=== PATIENT | female | born 1930 | race Caucasian/White ===

== ENCOUNTER 2017-05-19 12:53 | Inpatient (IN) | payer OTHER ==
[~2017-05-19] VITALS: Ht 160 cm; Wt 59.4 kg
[2017-05-19 13:16] LABS: BASOPHILS # (AUTO) 0.1 /CMM (0.0-0.2); EOSINOPHILS % (AUTO) 0.1 % (0.0-6.0); HEMATOCRIT 38 % (33-45); HEMOGLOBIN 13.1 g/dL (11.5-14.8); LYMPHOCYTES # (AUTO) 0.8 /CMM (0.8-4.8); LYMPHOCYTES % (AUTO) 7.4 % (20.0-44.0); MEAN CORPUSCULAR HEMOGLOBIN 31 PG (26.0-33.0); MEAN CORPUSCULAR HGB CONC 35 g/dl (31.0-36.0); MEAN CORPUSCULAR VOLUME 90 fL (82-100); MONOCYTES # (AUTO) 0.3 /CMM (0.1-1.30); MONOCYTES % (AUTO) 3.2 % (2.0-12.0); NEUTROPHILS # (AUTO) 9.7 /CMM (1.8-8.9); NEUTROPHILS % (AUTO) 88.3 % (43.0-81.0); PLATELET COUNT (AUTO) 137 /CMM (150-450); RDW COEFFICIENT OF VARIATION 12.4 (11.5-15.0); RED BLOOD CELL COUNT(AUTO) 4.16 MIL/uL (4.0-5.2); WHITE BLOOD COUNT (AUTO) 10.9 K/uL (4.3-11.0)
[2017-05-19 13:31] LABS: INR 1.03 (0.87-1.13); PROTHROMBIN TIME 10.7 SECS (9.5-12.7)
[2017-05-19 14:07] LABS: TROPONIN I < 0.017 ng/mL (0.00-0.056)
[2017-05-19 14:08] LABS: ALANINE AMINOTRANSFERASE 20 U/L (12-78); ALBUMIN 3.2 g/dL (3.4-5.0); ALKALINE PHOSPHATASE 49 U/L (46-116); ASPARTATE AMINOTRANSFERASE 33 U/L (15-37); BILIRUBIN,DIRECT 0.1 mg/dL (0.0-0.2); BILIRUBIN,TOTAL 0.8 mg/dL (0.2-1.0); CALCIUM, SERUM 8.9 mg/dL (8.5-10.1); CARBON DIOXIDE 28 mmol/L (21-32); CHLORIDE 108 mmol/L (98-107); CREATININE 0.9 mg/dL (0.6-1.3); GLUCOSE 117 mg/dL (74-106); POTASSIUM 3.5 mmol/L (3.5-5.1); SODIUM SERUM 145 mmol/L (136-145); TOTAL PROTEIN, SERUM 7.1 g/dL (6.4-8.2); UREA NITROGEN, BLOOD 16 mg/dL (7-18)
[2017-05-19] MEDS ORDERED: DIVA500T7 PO (14:13)
[2017-05-19] MEDS ORDERED: ACET-2605 PO (14:13)
[2017-05-19] MEDS ORDERED: ESCI10TA PO (14:13)
[2017-05-19] MEDS ORDERED: LOSA50TA21 PO (14:13)
[2017-05-19] MEDS ORDERED: METO25TA3 PO (14:13)
[2017-05-19] MEDS ORDERED: CLOP75TA15 PO (14:13)
[2017-05-19] MEDS ORDERED: FERR325T28 PO (14:13)
[2017-05-19] MEDS ORDERED: DOCU-141 PO (14:13)
[2017-05-19] MEDS ORDERED: SIMV20TA6 PO (14:13)
[2017-05-19] MEDS ORDERED: LETR2.5T PO (14:13)
[2017-05-19] MEDS ORDERED: IV NS 0.9% 1,000 ML IV ONE (15:00)
[2017-05-19 15:01] LABS: APPEARANCE,URINE Clear (CLEAR); BILIRUBIN,URINE Negative (NEGATIVE); BLOOD, URINE Moderate Ery/uL (NEGATIVE); COLOR,URINE Yellow (YELLOW); KETONES,URINE 15 (NEGATIVE); LEUKOCYTE ESTERASE ,URINE Moderate (NEGATIVE); NITRITE, URINE Positive (NEGATIVE); PH,URINE 5.5 (5.0-8.0); PROTEIN,URINE 100 mg/dl (NEGATIVE); UGLUCOSE Negative (NEGATIVE)
--- NOTE | 2017-05-19 15:05 | NUR ---
DR. SMILEY AT MADE AWARE RE: LACTIC ACID RESULT.
[2017-05-19 15:09] LABS: BACTERIA,URINE Many /HPF (None Seen); SQUAMOUS EPITHELIAL CELL,UR Few /HPF (None Seen)
[2017-05-19] MEDS ORDERED: ZOLPIDEM TARTRATE 5 MG TABLET PO PRN (15:30)
[2017-05-19] MEDS ORDERED: CEFTRIAXONE 1 G in IV D5W 50 ML IV SCH (15:30)
[2017-05-19] MEDS ORDERED: Z GUARD REMEDY 2 OZ OINT TP PRN (15:30)
[2017-05-19] MEDS ORDERED: IV NS 0.9% 1,000 ML IV PRN (15:30)
[2017-05-19] MEDS ORDERED: ACETAMINOPHEN 325 MG TABLET PO PRN (15:30)
[2017-05-19] MEDS ORDERED: ONDANSETRON HCL/PF 4 MG/2 ML VIAL IVP PRN (15:30)
[2017-05-19] MEDS ORDERED: MAGNESIUM HYDROXIDE 30 ML UDC PO PRN (15:30)
[2017-05-19] MEDS ORDERED: MAG HYDROX/AL HYDROX/SIMETH 30 ML UDC PO PRN (15:30)
[2017-05-19] MEDS: METOPROLOL SUCCINATE 25 MG TAB.SR.24H PO SCH (17:00)
[2017-05-19] MEDS: DOCUSATE SODIUM 100 MG CAPSULE PO SCH (17:00)
--- NOTE | 2017-05-19 17:15 | NUR ---
[facility] ROOM 206-1
--- NOTE | 2017-05-19 18:00 | NUR ---
RN INITIAL NOTE RECEIVED PT VIA NESTOR. NO REPORT GIVEN . CALLED ER WAS TOLD BY VALE THAT THEY HAD A CODE AND TO CALL BACK. Addendum: 05/19/17 at 1826 by MOSHE SEXTON RN PT V/S 130/70, T 102, HR 70 SPO2 90
--- NOTE | 2017-05-19 18:24 | NUR ---
CALLED ER GOT REPORT FROM FRANKLIN MAKI FROM ER.
[2017-05-19] MEDS: ACETAMINOPHEN 650 MG/SUPP.RECT RC PRN (18:57)
--- NOTE | 2017-05-19 19:30 | NUR ---
RN NOTES RECEIVED PATIENT IN BED ASLEEP, AROUSABLE. CONFUSED; DOES NOT ANSWER QUESTIONS; RESPONSIVE TO VOICE AND TOUCH. NO ACUTE DISTRESS NOTED. NO SIGNS OF PAIN NOTED. IV SITE PATENT, INTACT; FLUSHED. ON LOW BED WITH BILATERAL UPPER SIDE RAILS UP. CALL SANCHEZ WITHIN EASY REACH. WILL CONTINUE TO MONITOR.
[2017-05-19 20:00] VITALS: BP 110/61
[2017-05-19] MEDS: SIMVASTATIN 20 MG TABLET PO SCH (22:00)
[2017-05-19] MEDS ORDERED: ESCITALOPRAM OXALATE (10 MG) 10 MG TABLET PO SCH (22:00)
[2017-05-19] MEDS: DIVALPROEX SODIUM 500 MG TABLET.DR PO SCH (22:00)
[2017-05-19] MEDS ORDERED: CEFTRIAXONE 1 G VIAL ONE (22:14)
--- NOTE | 2017-05-20 06:30 | NUR ---
RN NOTES PATIENT WITH EYES CLOSED, AROUSABLE. RESPIRATIONS EVEN. NO SIGNS OF PAIN NOTED. DUE MED GIVEN WITH NO ASE NOTED. NEEDS ATTENDED. KEPT CLEAN AND DRY. SAFETY PRECAUTIONS AND COMFORT MEASURES IN PLACE. WILL GIVE REPORT TO DAY SHIFT FOR CONTINUITY OF CARE.
[2017-05-20 07:42] LABS: INR 1.05 (0.87-1.13); PROTHROMBIN TIME 10.9 SECS (9.5-12.7)
[2017-05-20 07:51] LABS: BASOPHILS % (AUTO) 0.1 % (0.0-2.0); EOSINOPHILS % (AUTO) 0.2 % (0.0-6.0); HEMATOCRIT 37 % (33-45); HEMOGLOBIN 13.1 g/dL (11.5-14.8); LYMPHOCYTES # (AUTO) 0.5 /CMM (0.8-4.8); LYMPHOCYTES % (AUTO) 7.5 % (20.0-44.0); MEAN CORPUSCULAR HEMOGLOBIN 32 PG (26.0-33.0); MEAN CORPUSCULAR HGB CONC 35 g/dl (31.0-36.0); MEAN CORPUSCULAR VOLUME 92 fL (82-100); MONOCYTES # (AUTO) 0.3 /CMM (0.1-1.30); MONOCYTES % (AUTO) 4.8 % (2.0-12.0); NEUTROPHILS # (AUTO) 6.1 /CMM (1.8-8.9); NEUTROPHILS % (AUTO) 87.4 % (43.0-81.0); PLATELET COUNT (AUTO) 123 /CMM (150-450); RED BLOOD CELL COUNT(AUTO) 4.07 MIL/uL (4.0-5.2); WHITE BLOOD COUNT (AUTO) 6.9 K/uL (4.3-11.0)
[2017-05-20 08:08] LABS: ALANINE AMINOTRANSFERASE 18 U/L (12-78); ALBUMIN 2.7 g/dL (3.4-5.0); ALKALINE PHOSPHATASE 40 U/L (46-116); ASPARTATE AMINOTRANSFERASE 34 U/L (15-37); BILIRUBIN,TOTAL 0.7 mg/dL (0.2-1.0); CALCIUM, SERUM 8.5 mg/dL (8.5-10.1); CARBON DIOXIDE 25 mmol/L (21-32); CHLORIDE 109 mmol/L (98-107); CREATININE 0.8 mg/dL (0.6-1.3); GLUCOSE 141 mg/dL (74-106); MAGNESIUM 1.8 mg/dL (1.8-2.4); PHOSPHORUS 2.5 mg/dL (2.5-4.9); SODIUM SERUM 146 mmol/L (136-145); TOTAL PROTEIN, SERUM 6.4 g/dL (6.4-8.2); UREA NITROGEN, BLOOD 17 mg/dL (7-18)
--- NOTE | 2017-05-20 08:10 | NUR ---
RN NOTES PATIENT WAS FOUND ON A 9LPM VIA MASK WITH SPO2 OF 85%. PATIENT WITH RAPID AND SHALLOW RESPIRATION. HOB ELEVATED, PATIENT'S OXYGEN INCREASED TO 10LPM VIA NRB, SPO2 INCREASED TO 91-92%. BP111/69 P76 T98.2 R28. PATIENT IS RESPONSIVE TO TOUCH, ABLE TO OPENS EYES BRIEFLY. CALLED [facility] DOCTOR, JESSICA COYNE GROMMET WORKER AND RECEIVED ORDER FOR ABG AND CXR, ORDER NOTED AND CARRIED OUT. WILL CONTINUE TO CLOSELY MONITOR THE PATIENT.
[2017-05-20 08:12] LABS: CHOLESTEROL 93 mg/dL (<200); CREATINE KINASE MB 1.5 ng/mL (0-3.6); HDL CHOLESTEROL 36 mg/dL (40-60); LDL 47 mg/dL (0-99); THYROID STIMULATING HORMONE 0.761 uIU/mL (0.358-3.74); TRIGLYCERIDES 52 mg/dL (30-150)
[2017-05-20 08:14] LABS: POTASSIUM 2.8 mmol/L (3.5-5.1)
[2017-05-20] MEDS ORDERED: POTASSIUM CHLORIDE 10 MEQ/50 ML PREMIXED IVPB FOR PERIPHERAL LINE IV STA (08:16)
[2017-05-20 08:17] LABS: IRON, SERUM 13 ug/dl (50-175); TOTAL IRON BINDING CAPACITY 141 ug/dl (250-450)
--- NOTE | 2017-05-20 08:19 | NUR ---
RN NOTES K LEVEL OF 2.8 RELAYED TO JESSICA COYNE NP, RECEIVED ORDER FOR POTASSIUM CHLORIDE 40MEQ. ORDER NOTED AND CARRIEDOUT.
[2017-05-20 08:37] LABS: ABG BASE EXCESS -0.1 mmol/L; ABG OXYGEN SATURATION 94.8 % (92.0-98.5); ABG PCO2 32.1 mmHg (35.0-45.0); ABG PO2 78.1 mmHg (75.0-100.0); AaDO2 602.8 mmHg; COHb 0.3 % (0.5-1.5); MetHb 0.4 % (0.0-1.5); O2Hb 94.1 % (94.0-97.0); SITE, ABG Left Radial; VENT MODE, BG NRB
--- NOTE | 2017-05-20 08:53 | NUR ---
RN NOTES RELAYED ABG RESULT TO DR. SMILEY AND RECEIVED ORDER TO TRANSFER PATIENT TO [facility], AND TO SET UP BIPAP. ORDER NOTED AND CARRIED OUT. PATIENT STILL ON O2 AT 10LPM VIA NRB, NOTED WITH LABORED BREATHING. PATIENT RESPONSIVE TO TOUCH. PAGED RT. WILL CONTINUE TO CLOSELY MONITOR.
[2017-05-20] MEDS: FERROUS SULFATE (325 MG) 325 MG/TAB TABLET PO SCH (09:00)
[2017-05-20] MEDS: CLOPIDOGREL BISULFATE 75 MG TABLET PO SCH (09:00)
[2017-05-20] MEDS: DOCUSATE SODIUM 100 MG CAPSULE PO SCH ×2 (09:00→16:28)
[2017-05-20] MEDS: LOSARTAN POTASSIUM 50 MG TABLET PO SCH (09:00)
[2017-05-20] MEDS: LETROZOLE 2.5 MG TABLET PO SCH (09:00)
[2017-05-20] MEDS: METOPROLOL SUCCINATE 25 MG TAB.SR.24H PO SCH ×2 (09:00→16:28)
[2017-05-20] MEDS ORDERED: FUROSEMIDE 100 MG/10 ML VIAL IV ONE (09:29)
--- NOTE | 2017-05-20 09:46 | NUR ---
RT NOTE PT PLACED ON BIPAP, PER MD ORDER, SETTINGS OF 15/5 BUR16, 100% FIO2, PRESCRIBED, ALARMS SET PER PROTOCOL AND AUDIBLE, BIPAP PLUGGED INTO RED OUTLET, AMBUBAG AT BEDSIDE, NO DISTRESS NOTED AT MOMENT, Addendum: 05/20/17 at 0949 by MARY MARIN RT Amended: Links added.
--- NOTE | 2017-05-20 10:00 | NUR ---
RT THIS PT WAS TRANSFERRED FROM 207 TO 107, MADE AWARE, PT IN NO DISTRESS, AMBUBAG AT BEDSIDE, PT STABLE WITH NO APPARENT DISTRESS. Addendum: 05/20/17 at 1048 by MARY MARIN RT Amended: Links added.
--- NOTE | 2017-05-20 10:05 | NUR ---
RN NOTES GAVE REPORT TO IAM MAKI, PATIENT TRANSFERRED TO [facility] ROOM 107 FOR HIGHER LEVEL OF CARE, ON O2 AT 10LPM VIA NON-REBREATHER MASK. SON MAUDE AT BEDSIDE, GAVE COPY OF [facility] DIRECTIVE, AND WOULD LIKE TO SPEAK WITH RE: CODE STATUS. ENDORSED TO IAM MAKI. DR. SMILEY MADE AWARE AND WILL TALK TO SON.
[2017-05-20] MEDS: POTASSIUM CL. PREMIX PERIPHER. 50 ML IV SCH ×4 (11:30→16:24)
[2017-05-20 16:00] VITALS: BP 114/54
[2017-05-20] MEDS: ACETAMINOPHEN 650 MG/SUPP.RECT RC PRN (16:39)
[2017-05-20] MEDS ORDERED: FEE PK DOSING 1 MIN EA MC ONE (17:06)
--- NOTE | 2017-05-20 17:54 | NUR ---
PATIENT TOLERATING BIPAP WELL ON CURRENT ORDERED SETTINGS. NO S/S OF RESPIRATORY DISTRESS NOTED. BIPAP PLUGGED INTO RED OUTLET. ALARMS ARE SET AND FUNCTIONING. AMBU BAG AT PATIENT BEDSIDE.
[2017-05-20] MEDS: PIPERACILLIN /TAZOBACTAM 2.25 G in IV D5W 50 ML IV SCH (18:05)
[2017-05-20] MEDS: VANCOMYCIN 1 GM in IV D5W 250 ML IV SCH (18:05)
--- NOTE | 2017-05-20 18:19 | NUR ---
MEPILEX PLACED AT BRIDGE OF THE NOSE DUE TO REDNESS. PRIMARY NURSE(IAM) AWARE.
--- NOTE | 2017-05-20 19:37 | NUR ---
RCVD PT ON BIPAP 27/09, RATE 16, 80%. VENT ALARM WORKING AND AUDIBLE, VENT PLUGGED INTO RED OUTLET, NO RESPIRATORY DISTRESS OR SOB NOTED AT THIS TIME. WILL CONTINUE TO MONITOR THE PATIENT.
[2017-05-20 20:00] VITALS: BP 91/39
--- NOTE | 2017-05-20 20:00 | NUR ---
tavares rn notes received pts on vipap as ordered well tolerated sating 98% on tele sb =59 no sob no distress noted , with eye close arrousable piv intact and patent ,all needs attended too call light within reach iv meds given as ordered, due po medication not given d/t pts npo diagnosis. turned q 2hrs and prn , kept pts clean dry and comfortable v/s stable afebrile . will continue to monitor pts.
[2017-05-20] MEDS ORDERED: CEFTRIAXONE 1 G in IV NS 0.9% 50 ML IV SCH (21:00)
[2017-05-20] MEDS ORDERED: IV NS 0.9% 250 ML IV PRN (21:30)
[2017-05-20] MEDS: DIVALPROEX SODIUM 500 MG TABLET.DR PO SCH (22:00)
[2017-05-20] MEDS: SIMVASTATIN 20 MG TABLET PO SCH (22:00)
[2017-05-21] VITALS: BP 98/54
[2017-05-21] MEDS: PIPERACILLIN /TAZOBACTAM 2.25 G in IV D5W 50 ML IV SCH ×2 (01:18→05:17)
[2017-05-21 04:00] VITALS: BP 99/38
--- NOTE | 2017-05-21 05:46 | NUR ---
[facility] RN NOTES PTS REMAINS ON BIPAP ORDERED AT 60%FIO2 WELL TOLERATED SATING 98% ON TELE SB-55 ON THE MONITOR , V/S STABLE AFEBRILE, WILL ENDORSE TO RN DAY SHIFT FOR CONTINUITY OF CARE.
[2017-05-21 07:19] LABS: BASOPHILS % (AUTO) 0.1 % (0.0-2.0); CALCIUM, SERUM 8.8 mg/dL (8.5-10.1); CARBON DIOXIDE 27 mmol/L (21-32); CHLORIDE 108 mmol/L (98-107); CREATININE 0.9 mg/dL (0.6-1.3); GLUCOSE 112 mg/dL (74-106); HEMATOCRIT 38 % (33-45); HEMOGLOBIN 12.8 g/dL (11.5-14.8); LYMPHOCYTES # (AUTO) 0.7 /CMM (0.8-4.8); MAGNESIUM 2.1 mg/dL (1.8-2.4); MEAN CORPUSCULAR HEMOGLOBIN 32 PG (26.0-33.0); MEAN CORPUSCULAR HGB CONC 34 g/dl (31.0-36.0); MEAN CORPUSCULAR VOLUME 93 fL (82-100); MONOCYTES # (AUTO) 0.1 /CMM (0.1-1.30); NEUTROPHILS # (AUTO) 9.2 /CMM (1.8-8.9); NEUTROPHILS % (AUTO) 91.9 % (43.0-81.0); PHOSPHORUS 2.9 mg/dL (2.5-4.9); PLATELET COUNT (AUTO) 129 /CMM (150-450); RDW COEFFICIENT OF VARIATION 13.4 (11.5-15.0); RED BLOOD CELL COUNT(AUTO) 4.05 MIL/uL (4.0-5.2); SODIUM SERUM 146 mmol/L (136-145); UREA NITROGEN, BLOOD 29 mg/dL (7-18)
--- NOTE | 2017-05-21 07:53 | NUR ---
RT REMOVED PATIENT ON BIPAP. PLACED PATIENT ON NONREBREATHER @ 100%. SP02 > 95%. NURSE, GINO, NOTIFIED. WILL CONTINUE TO MONITOR T/O SHIFT. NO SOB NOTED.
[2017-05-21 08:00] VITALS: BP 124/57
[2017-05-21] MEDS: CLOPIDOGREL BISULFATE 75 MG TABLET PO SCH (09:00)
[2017-05-21] MEDS: LOSARTAN POTASSIUM 50 MG TABLET PO SCH (09:00)
[2017-05-21] MEDS: DOCUSATE SODIUM 100 MG CAPSULE PO SCH ×2 (09:00→17:00)
[2017-05-21] MEDS: FERROUS SULFATE (325 MG) 325 MG/TAB TABLET PO SCH (09:00)
[2017-05-21] MEDS: METOPROLOL SUCCINATE 25 MG TAB.SR.24H PO SCH ×2 (09:00→17:00)
[2017-05-21] MEDS: LETROZOLE 2.5 MG TABLET PO SCH (09:00)
[2017-05-21 12:00] VITALS: BP 140/95
[2017-05-21] MEDS: VANCOMYCIN 1 GM in IV D5W 250 ML IV SCH (12:04)
[2017-05-21] MEDS: IV NS 0.9% 1,000 ML IV PRN (14:14)
[2017-05-21] MEDS: PIPERACILLIN /TAZOBACTAM 3.375 G in IV D5W 50 ML IV SCH ×3 (14:20→23:47)
[2017-05-21 16:00] VITALS: BP_SYST 113; BP_SYST 124; BP_DIAS 57; BP_DIAS 75
--- NOTE | 2017-05-21 19:36 | NUR ---
RN NOTE; TOLERATING NON REBREATHER MASK . PATIENT MORE AWAKE AND ALERT. SON AT THE BED SIDE . NO ANY DISTRESS NOTED. ON NS @ 80 ML/HR . ENDORSE TO NEXT SHIFT RN FOR CONTINUITY OF CARE.
[2017-05-21 20:00] VITALS: BP 118/50
--- NOTE | 2017-05-21 20:00 | NUR ---
TIRE LAYER NOTES RECEIVED PTS ON NON REBREATHER MASK SATING 95-97 % ON TELE SR ON THE MONITOR , PTS REMAINS NPO , ON IVF NS AT 80CC/HR WELL TOLERATED , NO SOB NO DISTRESS NOTED ALL NEEDS ATTENDED TOO ALL IV MEDICATION GIVEN ORDERED KEPT PTS CLEAN DRY AND COMFORTABLE , WILL CONTINUE TO MONITOR PTS.
[2017-05-21] MEDS: DIVALPROEX SODIUM 500 MG TABLET.DR PO SCH (21:49)
[2017-05-21] MEDS: SIMVASTATIN 20 MG TABLET PO SCH (21:50)
[2017-05-22] VITALS (7 sets, daily range): BP systolic 110–128; BP diastolic 53–72
[2017-05-22] MEDS: IV NS 0.9% 1,000 ML IV PRN ×2 (04:25→19:46)
[2017-05-22] MEDS: VANCOMYCIN 1 GM in IV D5W 250 ML IV SCH (05:24)
[2017-05-22] MEDS: PIPERACILLIN /TAZOBACTAM 3.375 G in IV D5W 50 ML IV SCH ×3 (06:20→17:43)
--- NOTE | 2017-05-22 06:54 | NUR ---
CYANIDE CASE HARDENER NOTES ENDORSE PTS WITH RN REGINE PTS REMAINS NPO ORDERED IVF NS AT 80CC/HR IN PROGRESS , WILL CONTINUE TO MONITOR PTS.
--- NOTE | 2017-05-22 07:05 | NUR ---
RECEIVED PATIENT ASLEEP BUT AROUSABLE ON NONREBREATHER,KEPT COMFORTABLE.
[2017-05-22 07:39] LABS: BASOPHILS % (AUTO) 0.2 % (0.0-2.0); HEMATOCRIT 33 % (33-45); LYMPHOCYTES # (AUTO) 0.7 /CMM (0.8-4.8); LYMPHOCYTES % (AUTO) 9.6 % (20.0-44.0); MEAN CORPUSCULAR HEMOGLOBIN 32 PG (26.0-33.0); MEAN CORPUSCULAR HGB CONC 34 g/dl (31.0-36.0); MEAN CORPUSCULAR VOLUME 94 fL (82-100); MONOCYTES # (AUTO) 0.1 /CMM (0.1-1.30); MONOCYTES % (AUTO) 1.5 % (2.0-12.0); NEUTROPHILS # (AUTO) 6.4 /CMM (1.8-8.9); NEUTROPHILS % (AUTO) 88.7 % (43.0-81.0); PLATELET COUNT (AUTO) 115 /CMM (150-450); RDW COEFFICIENT OF VARIATION 13.3 (11.5-15.0); RED BLOOD CELL COUNT(AUTO) 3.46 MIL/uL (4.0-5.2); WHITE BLOOD COUNT (AUTO) 7.2 K/uL (4.3-11.0)
[2017-05-22 07:53] LABS: CALCIUM, SERUM 8.4 mg/dL (8.5-10.1); CARBON DIOXIDE 22 mmol/L (21-32); CHLORIDE 111 mmol/L (98-107); CREATININE 0.8 mg/dL (0.6-1.3); GLUCOSE 113 mg/dL (74-106); MAGNESIUM 2.1 mg/dL (1.8-2.4); PHOSPHORUS 2.4 mg/dL (2.5-4.9); POTASSIUM 3.5 mmol/L (3.5-5.1); SODIUM SERUM 144 mmol/L (136-145); UREA NITROGEN, BLOOD 19 mg/dL (7-18)
[2017-05-22] MEDS: DOCUSATE SODIUM 100 MG CAPSULE PO SCH ×2 (08:11→16:19)
[2017-05-22] MEDS: LETROZOLE 2.5 MG TABLET PO SCH (08:12)
[2017-05-22] MEDS: FERROUS SULFATE (325 MG) 325 MG/TAB TABLET PO SCH (08:12)
[2017-05-22] MEDS: LOSARTAN POTASSIUM 50 MG TABLET PO SCH (08:12)
[2017-05-22] MEDS: CLOPIDOGREL BISULFATE 75 MG TABLET PO SCH (08:12)
[2017-05-22] MEDS: METOPROLOL SUCCINATE 25 MG TAB.SR.24H PO SCH ×2 (08:13→16:19)
--- NOTE | 2017-05-22 08:13 | NUR ---
held all po meds patient still lethargic and on npo,will ff. up.
--- NOTE | 2017-05-22 10:25 | NUR ---
patient seen and evaluated by dr. reese more awake,able to swallow ice chips,per md will titrate down o2 to 5 liters,sat %.
--- NOTE | 2017-05-22 10:34 | NUR ---
per dr. mary ann cooper to start on pureed with strict aspiration precaution.keep hob 45 degrees.
--- NOTE | 2017-05-22 13:00 | NUR ---
patient tolerated pureed ,aspiration precaution observed.
--- NOTE | 2017-05-22 13:01 | NUR ---
son at bedside updated with patient condition.
[2017-05-22] MEDS ORDERED: K PHOS NEUTRAL 250 MG TABLET PO ONE (13:30)
[2017-05-22] MEDS ORDERED: NEUTRA PHOS 1 POWD.PACKET PO ONE (15:00)
--- NOTE | 2017-05-22 16:27 | NUR ---
patient asleep,no acute distress,held bp meds secondary to low heart rate and bp md aware.
--- NOTE | 2017-05-22 17:57 | NUR ---
PT. HIGH RISK FOR SKIN BREAKDOWN OBTAINED ORDER FOR AIR MATTRESS.
--- NOTE | 2017-05-22 18:40 | NUR ---
patient tolerated dinner,aspiration precaution observed.
--- NOTE | 2017-05-22 19:15 | NUR ---
SPRING WINDER NOTES RECEIVED PATIENT AND REPORT FROM DAY SHIFT.
[2017-05-22] MEDS: DIVALPROEX SODIUM 500 MG TABLET.DR PO SCH (21:44)
[2017-05-22] MEDS: SIMVASTATIN 20 MG TABLET PO SCH (21:44)
--- NOTE | 2017-05-22 21:47 | NUR ---
LOADING INSPECTOR NOTES GAVE REPORT AND CARE OF PATIENT TO GLYNN TORRES.
--- NOTE | 2017-05-22 22:00 | NUR ---
OMID RN NOTE PT IN BED AWAKE, A/O X 1, CONFUSED. NO SOB, NO DISTRESS OR DISCOMFORT NOTED. DENIES PAIN. ON TELE SB 58 IVF NS @ 80 ML/HR INFUSING WELL, NO S/S OF INFILTRATION NOTED. REPOSITION HER FOR SKIN MANAGEMENT. ALL NEEDS ATTENDED. SIDE RAILS UP X 2 AND CALL LIGHT WITHIN REACH. VSS. CONTINUE TO MONITOR HER.
[2017-05-23] MEDS: VANCOMYCIN 1 GM in IV D5W 250 ML IV SCH (01:04)
[2017-05-23] MEDS: PIPERACILLIN /TAZOBACTAM 3.375 G in IV D5W 50 ML IV SCH ×5 (01:04→23:08)
[2017-05-23 04:00] VITALS: BP 114/48
--- NOTE | 2017-05-23 04:05 | NUR ---
MS RN NOTE PT IN NO DISTRESS OR DISCOMFORT. ASLEEP. PT ENDORSE TO NURSE IRAHETA FOR CONTINUE TO CARE.
--- NOTE | 2017-05-23 06:47 | NUR ---
LINE OUT MAN NOTE PT IN BED AWAKE, A/O X 1, CONFUSED. NO SOB, NO DISTRESS OR DISCOMFORT NOTED. DENIES PAIN. ON TELE SB 54 IVF NS @ 80 ML/HR INFUSING WELL, NO S/S OF INFILTRATION NOTED. REPOSITION HER FOR SKIN MANAGEMENT. ALL NEEDS ATTENDED. SIDE RAILS UP X 2 AND CALL LIGHT WITHIN REACH. VSS. WILL ENDORSE TO DAY SHIFT FOR ZOË.
[2017-05-23 06:48] LABS: BASOPHILS % (AUTO) 0.2 % (0.0-2.0); EOSINOPHILS % (AUTO) 0.1 % (0.0-6.0); HEMATOCRIT 32 % (33-45); HEMOGLOBIN 10.9 g/dL (11.5-14.8); LYMPHOCYTES # (AUTO) 0.9 /CMM (0.8-4.8); LYMPHOCYTES % (AUTO) 16.2 % (20.0-44.0); MEAN CORPUSCULAR HEMOGLOBIN 32 PG (26.0-33.0); MEAN CORPUSCULAR HGB CONC 34 g/dl (31.0-36.0); MEAN CORPUSCULAR VOLUME 93 fL (82-100); MONOCYTES # (AUTO) 0.3 /CMM (0.1-1.30); MONOCYTES % (AUTO) 5.9 % (2.0-12.0); NEUTROPHILS # (AUTO) 4.5 /CMM (1.8-8.9); NEUTROPHILS % (AUTO) 77.6 % (43.0-81.0); PLATELET COUNT (AUTO) 157 /CMM (150-450); RDW COEFFICIENT OF VARIATION 13.7 (11.5-15.0); RED BLOOD CELL COUNT(AUTO) 3.45 MIL/uL (4.0-5.2); WHITE BLOOD COUNT (AUTO) 5.8 K/uL (4.3-11.0)
[2017-05-23 07:16] LABS: CALCIUM, SERUM 8.6 mg/dL (8.5-10.1); CARBON DIOXIDE 30 mmol/L (21-32); CHLORIDE 112 mmol/L (98-107); CREATININE 0.8 mg/dL (0.6-1.3); GLUCOSE 94 mg/dL (74-106); PHOSPHORUS 2.9 mg/dL (2.5-4.9); SODIUM SERUM 149 mmol/L (136-145); UREA NITROGEN, BLOOD 15 mg/dL (7-18)
[2017-05-23 07:21] LABS: POTASSIUM 2.8 mmol/L (3.5-5.1)
--- NOTE | 2017-05-23 07:53 | NUR ---
BOAT MOTOR MECHANIC NOTES RECEIVED PT ON BED. A.OX 1. ON TELE MONITOR SB HR 58. ON NC 2L TOLERATING WELL. IV FLUID NS 80ML/HR RUNNING WELL. NO SIGN OF PAIN OR REDNESS. HEAD OF BED ELEVATED. SIDE RAILS UP. WILL CONTINUE TO MONITOR PT CLOSELY.
[2017-05-23 08:00] VITALS: BP 142/51
[2017-05-23] MEDS: METOPROLOL SUCCINATE 25 MG TAB.SR.24H PO SCH ×2 (09:19→17:49)
[2017-05-23] MEDS: CLOPIDOGREL BISULFATE 75 MG TABLET PO SCH (09:19)
[2017-05-23] MEDS: LETROZOLE 2.5 MG TABLET PO SCH (09:19)
[2017-05-23] MEDS: LOSARTAN POTASSIUM 50 MG TABLET PO SCH (09:20)
[2017-05-23] MEDS: Z GUARD REMEDY 2 OZ OINT TP SCH (09:20)
[2017-05-23] MEDS: FERROUS SULFATE (325 MG) 325 MG/TAB TABLET PO SCH (09:20)
[2017-05-23] MEDS: DOCUSATE SODIUM 100 MG CAPSULE PO SCH ×2 (09:20→17:49)
[2017-05-23 12:00] VITALS: BP 135/57
[2017-05-23] MEDS: POTASSIUM CL. PREMIX PERIPHER. 50 ML IV SCH ×4 (13:01→15:39)
[2017-05-23] MEDS: VANCOMYCIN 1 GM in IV D5W 250ml IV SCH (13:54)
[2017-05-23] MEDS ORDERED: POTASSIUM CHLORIDE 20 MEQ TAB.PRT.SR PO ONE (14:00)
--- NOTE | 2017-05-23 15:05 | NUR ---
PARTY PLAN SALES DIRECTOR NOTES NOTIFIED DR SMILEY REGARDING PT POTASSIUM 2.8
[2017-05-23 16:00] VITALS: BP 139/56
--- NOTE | 2017-05-23 19:33 | NUR ---
LEAD MEDICAL TECHNOLOGIST NOTES NO ACUTE CHANGES NOTED DURING THE SHIFT. DUE MEDS GIVEN. PROVIDED COMFORT. HEAD OF BED ELEVATED. SIDE RAILS UP. ENDORSED TO THE PM NURSE FOR CONTINUITY OF CARE.
[2017-05-23 20:00] VITALS: BP 137/48
[2017-05-23] MEDS: SIMVASTATIN 20 MG TABLET PO SCH (21:28)
[2017-05-23] MEDS: DIVALPROEX SODIUM 500 MG TABLET.DR PO SCH (21:29)
[2017-05-23] MEDS: HYDROCODONE/APAP 5/325MG 1 EACH TABLET PO PRN (21:29)
[2017-05-24 00:03] VITALS: BP 131/56
[2017-05-24] MEDS: VANCOMYCIN 1 GM in IV D5W 250ml IV SCH ×2 (01:04→13:08)
[2017-05-24] MEDS: IV NS 0.9% 1,000 ML IV PRN (01:50)
[2017-05-24 04:00] VITALS: BP 122/62
[2017-05-24] MEDS: PIPERACILLIN /TAZOBACTAM 3.375 G in IV D5W 50 ML IV SCH ×3 (05:13→17:29)
[2017-05-24] MEDS: HYDROCODONE/APAP 5/325MG 1 EACH TABLET PO PRN (05:16)
[2017-05-24 06:42] LABS: BASOPHILS % (AUTO) 0.2 % (0.0-2.0); EOSINOPHILS # (AUTO) 0.1 /CMM (0.0-0.7); EOSINOPHILS % (AUTO) 2.4 % (0.0-6.0); HEMATOCRIT 35 % (33-45); HEMOGLOBIN 11.9 g/dL (11.5-14.8); LYMPHOCYTES % (AUTO) 21.3 % (20.0-44.0); MEAN CORPUSCULAR HEMOGLOBIN 32 PG (26.0-33.0); MEAN CORPUSCULAR HGB CONC 35 g/dl (31.0-36.0); MEAN CORPUSCULAR VOLUME 92 fL (82-100); MONOCYTES # (AUTO) 0.3 /CMM (0.1-1.30); MONOCYTES % (AUTO) 6.5 % (2.0-12.0); NEUTROPHILS # (AUTO) 3.3 /CMM (1.8-8.9); NEUTROPHILS % (AUTO) 69.6 % (43.0-81.0); PLATELET COUNT (AUTO) 194 /CMM (150-450); RDW COEFFICIENT OF VARIATION 13.3 (11.5-15.0); RED BLOOD CELL COUNT(AUTO) 3.76 MIL/uL (4.0-5.2); WHITE BLOOD COUNT (AUTO) 4.7 K/uL (4.3-11.0)
[2017-05-24 06:58] LABS: CALCIUM, SERUM 8.8 mg/dL (8.5-10.1); CARBON DIOXIDE 32 mmol/L (21-32); CHLORIDE 110 mmol/L (98-107); CREATININE 0.7 mg/dL (0.6-1.3); GLUCOSE 94 mg/dL (74-106); MAGNESIUM 1.9 mg/dL (1.8-2.4); PHOSPHORUS 3.2 mg/dL (2.5-4.9); SODIUM SERUM 148 mmol/L (136-145); UREA NITROGEN, BLOOD 7 mg/dL (7-18)
[2017-05-24 07:24] LABS: POTASSIUM 2.7 mmol/L (3.5-5.1)
[2017-05-24 08:00] VITALS: BP_SYST 144; BP_DIAS 30; BP_DIAS 60
--- NOTE | 2017-05-24 08:00 | NUR ---
SOFTWARE DEVELOPMENT LEADER NOTES RECEIVED PT ON BED. A.OX 1. ON TELE MONITOR SB HR 43 ON NC 2L TOLERATING WELL. IV FLUID NS 80ML/HR RUNNING WELL. NO SIGN OF PAIN OR REDNESS. HEAD OF BED ELEVATED. SIDE RAILS UP. WILL CONTINUE TO MONITOR PT CLOSELY. NO SOB NOTED SEEN BY WOUND NURSE , Addendum: 05/24/17 at 0946 by GRETA COATS RN K 2.7 DR COSBY NOTIFIED WITH ORDER KCL GIVEN
--- NOTE | 2017-05-24 08:34 | NUR ---
WOUND CARE CONSULT PATIENT SEEN AND SKIN INTEGRITY ASSESSMENT DONE. PATIENT PRESENTS WITH INTACT SKIN AT THIS TIME. PATIENT WITH CURRENT ENRIQUE AT 12, INCONTINENT. ALL SKIN PROTECTION MEASURES IN PLACE AT THIS TIME. CONTINUE TURNING SCHED Q 2 HOURS, BILATERAL HEEL FLOATING, AND USE OF Z GUARD FOR SKIN/MOISTURE MANAGEMENT. ON 1ST STEP LOW AIRLOSS MATTRESS. MD IN AGREEMENT WITH PLAN OF CARE.
[2017-05-24] MEDS: METOPROLOL SUCCINATE 25 MG TAB.SR.24H PO SCH ×2 (09:00→16:19)
[2017-05-24] MEDS: CLOPIDOGREL BISULFATE 75 MG TABLET PO SCH (09:00)
[2017-05-24] MEDS: DOCUSATE SODIUM 100 MG CAPSULE PO SCH ×2 (09:00→16:19)
[2017-05-24] MEDS: LETROZOLE 2.5 MG TABLET PO SCH (09:00)
[2017-05-24] MEDS: LOSARTAN POTASSIUM 50 MG TABLET PO SCH (09:00)
[2017-05-24] MEDS: FERROUS SULFATE (325 MG) 325 MG/TAB TABLET PO SCH (09:00)
[2017-05-24] MEDS: Z GUARD REMEDY 2 OZ OINT TP SCH (09:00)
[2017-05-24] MEDS: POTASSIUM CHLORIDE 20 MEQ TAB.PRT.SR PO SCH ×2 (09:01→10:44)
--- NOTE | 2017-05-24 11:24 | NUR ---
HR INTERNSHIP NOTE ADELA AT BEDSIDE MID LINE INSERTED
--- NOTE | 2017-05-24 11:45 | NUR ---
SPOUT LINER NOTE CALLED X3 TO PHARMACY Z GUARD NOT AVAILABLE YET ,WILL F\U
[2017-05-24 12:00] VITALS: BP 100/59
--- NOTE | 2017-05-24 13:12 | NUR ---
BROOCH AND BRACELET MAKER NOTE ST AT BESIDE ABLE TO EAT PUREE DIET
--- NOTE | 2017-05-24 15:34 | NUR ---
DIRECTOR WATER AND WASTE SERVICES NOTE DR DIAZ AT BEDSIDE NOTIFIED THAT PATIENT HAS PUREE DIET AND EARLIER HAD HR 43 HOLD METOPROLOL ,STATED NO D\C FOR NOW BUT MONITOR CLOSELY OK TO D\C IVF .NOTIFIED THAT PATIENT COUGHING AT TIME,
[2017-05-24 16:00] VITALS: BP 147/63
--- NOTE | 2017-05-24 19:16 | NUR ---
RELAY WORKER NOTE ALL NEEDS ATTENDED .NOT IN A ACUTE DISTRESS
--- NOTE | 2017-05-24 19:42 | NUR ---
RESEARCH STUDY ASSISTANT OPENING NOTES RECEIVED REPORT FROM GRETA MAKI. PATIENT A/A/O X1-2 W/ SOME CONFUSION. BREATHING EVEN & UNLABORED, ON O2 2L VIA NC, TOLERATING WELL. ON TELE SINUS RHYTHM IN THE 60S. LEFT UPPER ARM MIDLINE INTACT & PATENT W/ DRESSING CDI & NS @ 80 ML/HR. NO COMPLICATIONS NOTED. PATIENT RESTING COMFORTABLY IN BED W/ SAFETY MEASURES IN PLACE. CALL LIGHT WITHIN REACH. SON @ BEDSIDE. WILL CONTINUE TO MONITOR.
[2017-05-24 20:00] VITALS: BP 142/60
[2017-05-24] MEDS: DIVALPROEX SODIUM 500 MG TABLET.DR PO SCH (22:07)
[2017-05-24] MEDS: SIMVASTATIN 20 MG TABLET PO SCH (22:07)
[2017-05-25] VITALS: BP 139/58
[2017-05-25] MEDS: PIPERACILLIN /TAZOBACTAM 3.375 G in IV D5W 50 ML IV SCH ×4 (00:11→17:16)
[2017-05-25] MEDS: VANCOMYCIN 1 GM in IV D5W 250ml IV SCH ×2 (02:47→11:44)
[2017-05-25 04:00] VITALS: BP 113/53
[2017-05-25 06:31] LABS: BASOPHILS % (AUTO) 0.3 % (0.0-2.0); EOSINOPHILS # (AUTO) 0.1 /CMM (0.0-0.7); EOSINOPHILS % (AUTO) 1.7 % (0.0-6.0); HEMATOCRIT 32 % (33-45); HEMOGLOBIN 11.1 g/dL (11.5-14.8); LYMPHOCYTES % (AUTO) 19.8 % (20.0-44.0); MEAN CORPUSCULAR HEMOGLOBIN 32 PG (26.0-33.0); MEAN CORPUSCULAR HGB CONC 35 g/dl (31.0-36.0); MEAN CORPUSCULAR VOLUME 91 fL (82-100); MONOCYTES # (AUTO) 0.5 /CMM (0.1-1.30); MONOCYTES % (AUTO) 9.4 % (2.0-12.0); NEUTROPHILS # (AUTO) 3.6 /CMM (1.8-8.9); NEUTROPHILS % (AUTO) 68.8 % (43.0-81.0); PLATELET COUNT (AUTO) 220 /CMM (150-450); RED BLOOD CELL COUNT(AUTO) 3.49 MIL/uL (4.0-5.2); WHITE BLOOD COUNT (AUTO) 5.2 K/uL (4.3-11.0)
[2017-05-25 07:14] LABS: CALCIUM, SERUM 8.8 mg/dL (8.5-10.1); CARBON DIOXIDE 32 mmol/L (21-32); CHLORIDE 107 mmol/L (98-107); CREATININE 0.7 mg/dL (0.6-1.3); GLUCOSE 106 mg/dL (74-106); MAGNESIUM 1.9 mg/dL (1.8-2.4); SODIUM SERUM 147 mmol/L (136-145); UREA NITROGEN, BLOOD 6 mg/dL (7-18)
--- NOTE | 2017-05-25 08:00 | NUR ---
RT PATIENT RECEIVED ON NASAL CANNULA @ 28%. NO SIGNS OF DISTRESS NOTED. BIPAP @ BEDSIDE PRN. PATIENT AWAKE/ALERT.
--- NOTE | 2017-05-25 08:20 | NUR ---
RECEIVED AWAKE,NO ACUTE DISTRESS,OFF WRIST RESTRAINT,LOWER BED ,BED ALARM ON,CALL LIGHT AT REACH,WILL WATCH FOR FALL RISK PRECAUTIONS.
[2017-05-25 08:23] VITALS: BP 145/67
--- NOTE | 2017-05-25 08:26 | NUR ---
DISCUSSED WITH DR. DONOHUE RENAL IF THEY ARE GOING TO SEE PT. SINCE ALWAYS MENTIONED ON PROGRESS NOTES RENAL FF. UP,PER RENAL PATIENT DOESNT NEED RENAL CONSULT PER CHART REVIEWED.
[2017-05-25] MEDS: DOCUSATE SODIUM 100 MG CAPSULE PO SCH ×2 (08:31→17:17)
[2017-05-25] MEDS: LOSARTAN POTASSIUM 50 MG TABLET PO SCH (08:32)
[2017-05-25] MEDS: LETROZOLE 2.5 MG TABLET PO SCH (08:32)
[2017-05-25] MEDS: CLOPIDOGREL BISULFATE 75 MG TABLET PO SCH (08:32)
[2017-05-25] MEDS: FERROUS SULFATE (325 MG) 325 MG/TAB TABLET PO SCH (08:32)
[2017-05-25] MEDS: Z GUARD REMEDY 2 OZ OINT TP SCH (08:42)
[2017-05-25] MEDS: METOPROLOL SUCCINATE 25 MG TAB.SR.24H PO SCH ×2 (10:07→17:17)
[2017-05-25] MEDS ORDERED: POTASSIUM PHOSPHATE MM 15 MMOL in IV D5W 250 ML IV SCH (11:00)
[2017-05-25] MEDS: POTASSIUM CHLORIDE 20 MEQ POWDER PACKET PO SCH ×3 (11:43→13:56)
[2017-05-25] MEDS: IPRATROPIUM NEB FS 0.5 MG/2.5 ML AMPUL.NEB NEB SCH ×3 (12:30→19:15)
[2017-05-25] MEDS: ALBUTEROL FS 2.5 MG/3 ML VIAL.NEB NEB SCH ×3 (12:30→19:15)
[2017-05-25] MEDS: POTASSIUM PHOSPHATE MM 7.5 MMOL in IV D5W 100 ML IV SCH ×2 (12:35→15:25)
[2017-05-25 12:39] VITALS: BP 123/60
[2017-05-25 17:15] VITALS: BP 130/60
[2017-05-25] MEDS: LACTOBACILLUS RHAMNOSUS GG 1 EACH CAP.SPRINK PO SCH (18:10)
--- NOTE | 2017-05-25 19:30 | NUR ---
MS RN INITIAL NOTES RECEIVED PATIENT ASLEEP, EASILY AROUSABLE. NO S/S OF PAIN OR DISCOMFORT. NO RESPIRATORY DISTRESS NOTED, ON 2LPMO2 VIA NC. HOB ELEVATED. SIDE RAILS UP AND LOCKED. BED KEPT AT LOWEST POSITION. CALL LIGHT KEPT WITHIN EASY REACH. WILL CONTINUE TO MONITOR.
[2017-05-25 20:00] VITALS: BP 150/67
[2017-05-25] MEDS: SIMVASTATIN 20 MG TABLET PO SCH (21:42)
[2017-05-25] MEDS: DIVALPROEX SODIUM 500 MG TABLET.DR PO SCH (21:42)
[2017-05-26] MEDS: PIPERACILLIN /TAZOBACTAM 3.375 G in IV D5W 50 ML IV SCH ×4 (00:06→18:31)
[2017-05-26] MEDS: IPRATROPIUM NEB FS 0.5 MG/2.5 ML AMPUL.NEB NEB SCH ×5 (00:27→14:30)
[2017-05-26] MEDS: VANCOMYCIN 1 GM in IV D5W 250ml IV SCH (01:44)
[2017-05-26] MEDS: ALBUTEROL FS 2.5 MG/3 ML VIAL.NEB NEB SCH ×3 (02:31→14:29)
[2017-05-26 04:00] VITALS: BP 107/60
[2017-05-26 06:53] LABS: CALCIUM, SERUM 8.8 mg/dL (8.5-10.1); CARBON DIOXIDE 33 mmol/L (21-32); CHLORIDE 111 mmol/L (98-107); CREATININE 0.9 mg/dL (0.6-1.3); GLUCOSE 105 mg/dL (74-106); MAGNESIUM 1.9 mg/dL (1.8-2.4); PHOSPHORUS 4.2 mg/dL (2.5-4.9); POTASSIUM 3.8 mmol/L (3.5-5.1); SODIUM SERUM 149 mmol/L (136-145); UREA NITROGEN, BLOOD 8 mg/dL (7-18)
[2017-05-26 07:08] LABS: BASOPHILS % (AUTO) 0.1 % (0.0-2.0); EOSINOPHILS # (AUTO) 0.1 /CMM (0.0-0.7); EOSINOPHILS % (AUTO) 1.4 % (0.0-6.0); HEMATOCRIT 33 % (33-45); HEMOGLOBIN 11.4 g/dL (11.5-14.8); LYMPHOCYTES # (AUTO) 1.6 /CMM (0.8-4.8); LYMPHOCYTES % (AUTO) 24.6 % (20.0-44.0); MEAN CORPUSCULAR HEMOGLOBIN 32 PG (26.0-33.0); MEAN CORPUSCULAR HGB CONC 35 g/dl (31.0-36.0); MEAN CORPUSCULAR VOLUME 90 fL (82-100); MONOCYTES # (AUTO) 0.5 /CMM (0.1-1.30); MONOCYTES % (AUTO) 8.1 % (2.0-12.0); NEUTROPHILS # (AUTO) 4.2 /CMM (1.8-8.9); NEUTROPHILS % (AUTO) 65.8 % (43.0-81.0); PLATELET COUNT (AUTO) 284 /CMM (150-450); RDW COEFFICIENT OF VARIATION 12.2 (11.5-15.0); WHITE BLOOD COUNT (AUTO) 6.4 K/uL (4.3-11.0)
[2017-05-26 08:00] VITALS: BP 106/58
--- NOTE | 2017-05-26 08:15 | NUR ---
MS RN INITIAL NOTES RN RECEIVED PATIENT ASLEEP IN BED NO S/S OF PAIN OR DISCOMFORT. NO RESPIRATORY DISTRESS OR SOB NOTED AT THIS TIME, ON 2L O2 NC. HOB ELEVATED. SIDE RAILS UP AND LOCKED. BED KEPT AT LOWEST POSITION. CALL LIGHT KEPT WITHIN EASY REACH. RN WILL CONTINUE TO MONITOR THROUGHOUT THE DAY .
[2017-05-26] MEDS: CLOPIDOGREL BISULFATE 75 MG TABLET PO SCH (09:16)
[2017-05-26] MEDS: FERROUS SULFATE (325 MG) 325 MG/TAB TABLET PO SCH (09:16)
[2017-05-26] MEDS: DOCUSATE SODIUM 100 MG CAPSULE PO SCH ×2 (09:16→18:28)
[2017-05-26] MEDS: LACTOBACILLUS RHAMNOSUS GG 1 EACH CAP.SPRINK PO SCH ×2 (09:16→18:28)
[2017-05-26] MEDS: LOSARTAN POTASSIUM 50 MG TABLET PO SCH (09:16)
[2017-05-26] MEDS: METOPROLOL SUCCINATE 25 MG TAB.SR.24H PO SCH ×2 (09:17→18:28)
[2017-05-26] MEDS: Z GUARD REMEDY 2 OZ OINT TP SCH (09:18)
[2017-05-26] MEDS: LETROZOLE 2.5 MG TABLET PO SCH (09:18)
[2017-05-26] MEDS ORDERED: FERR325T28 PO (12:36)
[2017-05-26] MEDS ORDERED: IPRA12.9 INH (12:36)
[2017-05-26] MEDS ORDERED: LACT1CAP72 PO (12:36)
[2017-05-26] MEDS ORDERED: PIPE3.379 IV (12:36)
[2017-05-26] MEDS ORDERED: ALBU18HF2 INH (12:36)
[2017-05-26] MEDS ORDERED: ALBUT2 NEB (12:36)
[2017-05-26] MEDS ORDERED: DOCU-141 PO (12:36)
[2017-05-26 18:28] VITALS: BP 122/63
--- NOTE | 2017-05-26 18:53 | NUR ---
Rn note Patient in bed no complaints noted at this time , patient has scheduled discharge to the [facility] RN SPOKE WITH GLYNN MCCORD , AND GAVE REPORT PATIENT INFORMED OF DISCHARGE HOWEVER UNDERSTANDING IS NOT VERIFIABLE. PATIENT NEEDS ATTENDED ALL MEDICATIONS GIVEN PATIENT STABLE AT THIS TIME AND WILL BE ENDORSED TO PM RN FOR CONTINUATION OF CARE
--- NOTE | 2017-05-26 19:25 | NUR ---
RN OPENING NOTE RECEIVED PATIENT AWAKE, CONFUSED NO S/S OF PAIN OR DISCOMFORT. NO RESPIRATORY DISTRESS NOTED, ON 3 LPMO2 VIA NC. HOB ELEVATED. SIDE RAILS UP AND LOCKED. BED AT THE LOWEST POSITION. CALL LIGHT KEPT WITHIN EASY REACH. DISCHARGE PAPERWORK READY, PER AM NURSE, WILL CONTINUE TO MONITOR
--- NOTE | 2017-05-26 19:38 | NUR ---
DISCHARGE NOTE PATIENT LEFT IN THE STABLE CONDITION, VITAL SIGNS STABLE, AMBULANCE PICKED UP PATIENT VIA GURNEY TO [facility], ALL PAPERWORK WAS PROVIDED TO AMBULANCE, REPORT PROVIDED BY AM NURSE TO [facility]. PATIENT IS AWAKE, 3L VIA NASAL CANULA, NO S/S OF RESPIRATORY DISTRESS NOTED, NO S/S OF PAIN OR DISCOMFORT NOTED.
[2017-05-26] MEDS ORDERED: VANCOMYCIN 1 GM in IV D5W 250 ML IV SCH (23:00)
== END 2017-05-26 19:35 | DRG 871 ==
LOC: ER 12:54 → MEDSG2 17:31 → MEDSG1 05-20 10:09 → TELE-TD 05-20 11:26 → TELE1 05-21 12:05 → MEDSG1 05-25 11:18
PROVIDERS: ADMIT Internal Medicine; ATTEND Internal Medicine
PROC: 5A09357 Assistance with Respiratory Ventilation, Less than 24 Consecutive Hours, Continuous Positive Airway Pressure (ICD-10-PCS; principal; 2017-05-16)
PROC: 05H633Z Insertion of Infusion Device into Left Subclavian Vein, Percutaneous Approach (ICD-10-PCS; 2017-05-24)
PROC: B547ZZA Ultrasonography of Left Subclavian Vein, Guidance (ICD-10-PCS; 2017-05-24)
DX: A41.1 Sepsis due to other specified staphylococcus (principal); E43 Unspecified severe protein-calorie malnutrition; J69.0 Pneumonitis due to inhalation of food and vomit; J96.01 Acute respiratory failure with hypoxia; G93.41 Metabolic encephalopathy; J15.6 Pneumonia due to other Gram-negative bacteria; I50.33 Acute on chronic diastolic (congestive) heart failure; J90 Pleural effusion, not elsewhere classified; E87.0 Hyperosmolality and hypernatremia; J98.11 Atelectasis; N39.0 Urinary tract infection, site not specified; E86.0 Dehydration; C50.919 Malignant neoplasm of unspecified site of unspecified female breast; E03.9 Hypothyroidism, unspecified; E78.5 Hyperlipidemia, unspecified; F03.90 Unspecified dementia, unspecified severity, without behavioral disturbance, psychotic disturbance, mood disturbance, and anxiety; Z79.899 Other long term (current) drug therapy; F09 Unspecified mental disorder due to known physiological condition; Z66 Do not resuscitate; Z85.9 Personal history of malignant neoplasm, unspecified; D50.9 Iron deficiency anemia, unspecified; I25.10 Atherosclerotic heart disease of native coronary artery without angina pectoris; G40.909 Epilepsy, unspecified, not intractable, without status epilepticus; E86.1 Hypovolemia; I10 Essential (primary) hypertension; E87.6 Hypokalemia; E83.39 Other disorders of phosphorus metabolism; R62.7 Adult failure to thrive
CPT/HCPCS: 31720; 36415; 36600; 71045-TC; 80048-TC; 80053-TC; 80061-TC; 80076-TC; 80202-TC; 81000-TC; 82553-TC; 82746; 82803-TC; 83540-TC; 83605-TC; 83735-TC; 84100-TC; 84443-TC; 84484-TC; 85025-TC; 85652-TC; 85730-TC; 87040-TC; 87081-TC; 87186-TC; 92526; 92611-TC; 93307-TC; 94760-TC; 94762-TC; 94799-TC; A4216; A4606; J0696; J1940; J2543; J3370; J3480; J3490; J7030; J7050; J7060; Z7610

== ENCOUNTER 2019-04-04 21:15 | Emergency (ER) | payer OTHER ==
[~2019-04-04] VITALS: Ht 160 cm; Wt 70.3 kg
[~2019-04-04 21:15] MED LIST: ACET-2605 PO; ALBU18HF2 INH; ALBUT2 NEB; CLOP75TA15 PO; DIVA-78 PO; DOCU-141 PO; ESCI10TA PO; FERR325T28 PO; IPRA12.9 INH; LACT1CAP72 PO; LETR2.5T PO; LOSA50TA39 PO; METO25TA3 PO; PIPE3.379 IV; SIMV-46 PO
--- NOTE | 2019-04-04 21:15 | NUR ---
PT BIB PRIVATE AMBULANCE C/O LETHATGIC S/P UNWITNESSED GLF, UNK KO. PT ON PLAVIX. PT AOX1. NAD NOTED. RESP EVEN AND UNLABORED. PT ON MONITOR IN BED 1. WILL CONTINUE TO MONITOR.
--- NOTE | 2019-04-04 21:52 | NUR ---
TECH AT BEDSIDE FOR EKG
--- NOTE | 2019-04-04 22:04 | NUR ---
PHLEB AT BEDSIDE FOR BLOOD DRAW
--- NOTE | 2019-04-04 22:15 | NUR ---
RADIOLOGY AT BEDSIDE FOR XRAY
[2019-04-04 22:27] LABS: CALCIUM, SERUM 10.1 mg/dL (8.5-10.1); CARBON DIOXIDE 26 mmol/L (21-32); CHLORIDE 111 mmol/L (98-107); CREATININE 0.9 mg/dL (0.6-1.3); GLUCOSE 100 mg/dL (74-106); POTASSIUM 3.9 mmol/L (3.5-5.1); SODIUM SERUM 148 mmol/L (136-145); UREA NITROGEN, BLOOD 20 mg/dL (7-18)
[2019-04-04 22:29] LABS: BASOPHILS # (AUTO) 0.1 /CMM (0.0-0.2); BASOPHILS % (AUTO) 0.5 % (0.0-2.0); HEMATOCRIT 45 % (33-45); HEMOGLOBIN 15.1 g/dL (11.5-14.8); LYMPHOCYTES # (AUTO) 1.7 /CMM (0.8-4.8); LYMPHOCYTES % (AUTO) 16.3 % (20.0-44.0); MEAN CORPUSCULAR HGB CONC 33 g/dl (31.0-36.0); MEAN CORPUSCULAR VOLUME 91 fL (82-100); MONOCYTES # (AUTO) 0.6 /CMM (0.1-1.30); MONOCYTES % (AUTO) 5.6 % (2.0-12.0); NEUTROPHILS # (AUTO) 7.9 /CMM (1.8-8.9); NEUTROPHILS % (AUTO) 76.6 % (43.0-81.0); PLATELET COUNT (AUTO) 175 /CMM (150-450); RED BLOOD CELL COUNT(AUTO) 4.99 MIL/uL (4.0-5.2); WHITE BLOOD COUNT (AUTO) 10.3 K/uL (4.3-11.0)
[2019-04-04 22:33] LABS: ALANINE AMINOTRANSFERASE 27 U/L (12-78); ALKALINE PHOSPHATASE 101 U/L (46-116); ASPARTATE AMINOTRANSFERASE 26 U/L (15-37); BILIRUBIN,DIRECT 0.1 mg/dL (0.0-0.2); BILIRUBIN,TOTAL 1.1 mg/dL (0.2-1.0); TOTAL PROTEIN, SERUM 7.5 g/dL (6.4-8.2)
--- NOTE | 2019-04-04 22:58 | NUR ---
PT TAKEN TO RADIOLOGY VIA NESTOR
--- NOTE | 2019-04-04 23:15 | NUR ---
PT RETURNED FROM RADIOLOGY VIA [facility]
--- NOTE | 2019-04-04 23:57 | NUR ---
URINE COLLECTED AND SENT TO LAB
[2019-04-05 00:17] LABS: APPEARANCE,URINE Slightly Cloudy (CLEAR); BILIRUBIN,URINE Negative (NEGATIVE); BLOOD, URINE Small Ery/uL (NEGATIVE); COLOR,URINE Yellow (YELLOW); KETONES,URINE Negative (NEGATIVE); LEUKOCYTE ESTERASE ,URINE Moderate (NEGATIVE); NITRITE, URINE Positive (NEGATIVE); PROTEIN,URINE Negative (NEGATIVE); UGLUCOSE Negative (NEGATIVE); UROBILINOGEN,URINE 0.2 EU/dL (0.2)
[2019-04-05 00:49] VITALS: BP 98/53
[2019-04-05 00:52] LABS: BACTERIA,URINE Many /HPF (None Seen); SQUAMOUS EPITHELIAL CELL,UR Rare /HPF (None Seen); WBC,URINE TOO NUMEROUS TO COUN /HPF (0-3)
[2019-04-05] MEDS ORDERED: CEFTRIAXONE 1GM BAG (ER ONLY) 1 GM/50 ML PIGGYBACK IV ONE (01:00)
--- NOTE | 2019-04-05 01:00 | NUR ---
ADDENDUM: Rocephin 1 gram IVPB: start time: 0; end time: 0; IV site: R hand Port # 20g
[2019-04-05] MEDS ORDERED: LORAZEPAM INJ 2 MG/ML VIAL ONE (01:21)
[2019-04-05] MEDS ORDERED: LORAZEPAM INJ 2 MG/ML VIAL IV ONE (01:30)
--- NOTE | 2019-04-05 01:39 | NUR ---
PT WILL BE TRANSFERRED TO [facility] PER INSURANCE REQUEST BED ASSIGNMENT: ROOM 2 CDU NUMBER FOR REPORT: [phone] ACCEPTING MD: DR. CERRATO ETA: [id number]
[2019-04-05] MEDS ORDERED: CEFTRIAXONE 1GM BAG (ER ONLY) 50 ML IV ONE (02:19)
--- NOTE | 2019-04-05 02:20 | NUR ---
REPORT GIVEN TO GLYNN ALAS AT [facility] FOR ZO[facility]
--- NOTE | 2019-04-05 02:20 | NUR ---
SPOKE WITH JACOB FROM [facility] AND INFORMED OF PT TRANSFER
--- NOTE | 2019-04-05 02:29 | NUR ---
REPORT GIVEN TO TRANSPORTERS
== END 2019-04-05 02:30 | disposition short-term general hospital (02) ==
LOC: ER 21:15
DX: R55 Syncope and collapse (principal); N39.0 Urinary tract infection, site not specified; F03.90 Unspecified dementia, unspecified severity, without behavioral disturbance, psychotic disturbance, mood disturbance, and anxiety; I10 Essential (primary) hypertension; E03.9 Hypothyroidism, unspecified; Z79.899 Other long term (current) drug therapy; W18.39XA Other fall on same level, initial encounter; Y93.89 Activity, other specified; Y92.89 Other specified places as the place of occurrence of the external cause; Y99.8 Other external cause status
CPT/HCPCS: 36415; 70450; 71045; 72125; 80048; 80076; 81001; 83605; 84145; 84484; 85025; 85730; 87040 ×2; 93005; 96365; 96375; 99285; J0696; J2060; 81000-TC; 87081-TC; 87086-TC

== ENCOUNTER 2019-11-02 14:50 | Inpatient (IN) | payer OTHER ==
[~2019-11-02] VITALS: Ht 175.3 cm; Wt 56.7 kg
[2019-11-02] MEDS ORDERED: IV NS 0.9% 500 ML BAG IV ONE ×2 (15:00→16:30)
--- NOTE | 2019-11-02 15:12 | NUR ---
SIMIN FROM [facility]. TO ER BED 7. AAOX0. NOT IN RESP DISTRESS, BREATHING JONNY NAD UNLABORED BUT NOTED SATTING @ 89% ON RA. PLACED ON 02 VIA NC @ 2LPM, O2 SAT WENT UP TO 98%. PT WAS BROUGHT IN FOR MORE THAT ALTERED USUAL AND CONCERN OF ASSISTED LIVING STAFF THAT SHE IS "PALE". RECTAL TEMP NOTED @ 100.6. PT NOTED WITH BP OF 92/41. PT MD WAS AT BEDSIDE. ORDERS RECEIVED NOTED AND CARRIED OUT. IV LINE OBTAINED ON R AC 20G. BLOOD DRAWN AND GIVEN TO MASTER CRAFTSMAN AT BEDSIDE. URINE COLLECTED VIA IN & OUT WITH STRICT STERILE TECHNIQUE OBSERVED. EKG DONE AT BEDSIDE. PT IN ON MONITOR
[2019-11-02 15:15] LABS: BASOPHILS % (AUTO) 0.4 % (0.0-2.0); EOSINOPHILS % (AUTO) 0.4 % (0.0-6.0); HEMATOCRIT 39 % (33-45); HEMOGLOBIN 12.7 g/dL (11.5-14.8); LYMPHOCYTES # (AUTO) 1.2 /CMM (0.8-4.8); LYMPHOCYTES % (AUTO) 10.3 % (20.0-44.0); MEAN CORPUSCULAR HGB CONC 32 g/dl (31.0-36.0); MEAN CORPUSCULAR VOLUME 93 fL (82-100); MONOCYTES # (AUTO) 1.3 /CMM (0.1-1.30); MONOCYTES % (AUTO) 10.6 % (2.0-12.0); NEUTROPHILS # (AUTO) 9.4 /CMM (1.8-8.9); NEUTROPHILS % (AUTO) 78.3 % (43.0-81.0); PLATELET COUNT (AUTO) 263 /CMM (150-450)
[2019-11-02 15:21] LABS: CALCIUM, SERUM 9.8 mg/dL (8.5-10.1); POTASSIUM 3.9 mmol/L (3.5-5.1)
[2019-11-02 15:27] LABS: ALBUMIN 2.6 g/dL (3.4-5.0); BILIRUBIN,DIRECT 0.2 mg/dL (0.0-0.2); BILIRUBIN,TOTAL 0.6 mg/dL (0.2-1.0); TOTAL PROTEIN, SERUM 6.6 g/dL (6.4-8.2)
[2019-11-02 15:45] LABS: APPEARANCE,URINE Cloudy (CLEAR); BILIRUBIN,URINE Negative (NEGATIVE); BLOOD, URINE Negative Ery/uL (NEGATIVE); COLOR,URINE Yellow (YELLOW); KETONES,URINE Negative (NEGATIVE); LEUKOCYTE ESTERASE ,URINE Negative (NEGATIVE); NITRITE, URINE Positive (NEGATIVE); PH,URINE 5.5 (5.0-8.0); PROTEIN,URINE Trace mg/dl (NEGATIVE); UGLUCOSE Negative (NEGATIVE)
[2019-11-02 15:53] LABS: THYROID STIMULATING HORMONE 4.18 uIU/mL (0.358-3.74)
[2019-11-02] MEDS ORDERED: IV NS 0.9% 1,000 ML IV ONE (16:00)
[2019-11-02] MEDS ORDERED: VANCOMYCIN 1 GM in IV D5W 250 ML IV ONE (16:00)
[2019-11-02] MEDS ORDERED: CEFEPIME 1 GM in IV D5W 50 ML IV ONE (16:00)
[2019-11-02 16:09] LABS: BACTERIA,URINE Many /HPF (None Seen); RBC,URINE 0-2 /HPF (0-2); WBC,URINE 0-2 /HPF (0-3)
[2019-11-02 16:10] LABS: SQUAMOUS EPITHELIAL CELL,UR Few /HPF (None Seen)
--- NOTE | 2019-11-02 16:21 | NUR ---
PANEL ON-CALL PAGED
--- NOTE | 2019-11-02 16:49 | NUR ---
SPOKE TO JOSR AND HEALTH CARE PARTNERS WILL BE REACHING OUT FOR DOCTOR TO DOCTOR CALL.
[2019-11-02 17:06] LABS: CREATINE KINASE, TOTAL 285 U/L (26-192); FERRITIN 3157 ng/mL (8-388)
--- NOTE | 2019-11-02 17:29 | NUR ---
BED ASSIGNED 323-1
--- NOTE | 2019-11-02 18:03 | NUR ---
REPORT GIVEN TO GLYNN WITT FOR ZOË
--- NOTE | 2019-11-02 18:09 | NUR ---
PT TO 105 TELE
[2019-11-02] MEDS ORDERED: HYDROCODONE/APAP 5/325MG 1 EACH TABLET PO PRN (18:30)
[2019-11-02] MEDS ORDERED: Z GUARD REMEDY 2 OZ OINT TP PRN (18:30)
[2019-11-02] MEDS ORDERED: ACETAMINOPHEN 325 MG TABLET PO PRN (18:30)
[2019-11-02] MEDS ORDERED: MAGNESIUM HYDROXIDE 30 ML UDC PO PRN (18:30)
[2019-11-02] MEDS ORDERED: ONDANSETRON HCL/PF 4 MG/2 ML VIAL IVP PRN (18:30)
[2019-11-02] MEDS ORDERED: MAG HYDROX/AL HYDROX/SIMETH 30 ML UDC PO PRN (18:30)
--- NOTE | 2019-11-02 18:35 | NUR ---
tranported pt to unit [facility] with emt and rn at bedside w/ acls prptocol. nad noted during transport.
--- NOTE | 2019-11-02 19:00 | NUR ---
FIELD MARKETING REPRESENTATIVE NOTE: PATIENT ARRIVED TO UNIT AT 1800 AND TRANSPORTED FROM ER VIA ACLS PROTOCOL. PATIENT'S DX: SEPSIS R/O COVID. AAOX1 WITH CONFUSION AND UNABLE TO PROVIDE ANY INFORMATION. PLACED ON DROPLET PRECAUTION. NO RESPIRATORY DISTRESS. ON O2 AT 2LPM VIA NC, TOLERATING WELL, SPO2 >95%. VITAL SIGNS TAKEN. PATIENT NOW AFEBRILE 97.5F. PHOTOS OF SKIN ISSUES TAKEN AND PLACED IN CHART. PATIENT HAS POLST FROM FACILITY. CODE STATUS: DNR. BODY ASSESSMENT DONE. CHARGE NURSE AWARE. SAFETY PRECAUTIONS IMPLEMENTED. BED LOCKED, ALARM ON, LOW POSITION. SIDE RAILS X 2 UP. HOB ELEVATED. CALL LIGHT WITHIN REACH. WILL CONT. TO MONITOR.
[2019-11-02] MEDS ORDERED: FEE PK DOSING 1 MIN EA MC ONE (19:15)
[2019-11-02] MEDS: ENOXAPARIN SODIUM 40 MG/0.4 ML DISP.SYRIN SQ SCH (19:44)
[2019-11-02 20:00] VITALS: BP 112/79
[2019-11-03] VITALS: BP 109/56
[2019-11-03] MEDS: CEFEPIME 1 GM in IV D5W 50 ML IV SCH ×2 (03:40→15:14)
[2019-11-03 04:00] VITALS: BP 113/67
--- NOTE | 2019-11-03 05:30 | NUR ---
RN NOTE: BEAU TREVIÑO MADE AWARE OF PATIENT'S CODE STATUS DNR. COPY OF POLST PLACED IN CHART.
--- NOTE | 2019-11-03 07:15 | NUR ---
RN CLOSING NOTES: PATIENT IN STABLE CONDITION. ENDORSED TO AM SHIFT NURSE FOR CONTINUITY OF CARE.
[2019-11-03 07:20] LABS: BASOPHILS # (AUTO) 0.1 /CMM (0.0-0.2); BASOPHILS % (AUTO) 0.7 % (0.0-2.0); EOSINOPHILS % (AUTO) 2.1 % (0.0-6.0); HEMATOCRIT 37 % (33-45); HEMOGLOBIN 12.1 g/dL (11.5-14.8); LYMPHOCYTES % (AUTO) 9.8 % (20.0-44.0); MEAN CORPUSCULAR HGB CONC 33 g/dl (31.0-36.0); MEAN CORPUSCULAR VOLUME 93 fL (82-100); MONOCYTES % (AUTO) 9.7 % (2.0-12.0); NEUTROPHILS # (AUTO) 8.1 /CMM (1.8-8.9); NEUTROPHILS % (AUTO) 77.7 % (43.0-81.0); PLATELET COUNT (AUTO) 247 /CMM (150-450); RED BLOOD CELL COUNT(AUTO) 3.95 MIL/uL (4.0-5.2); WHITE BLOOD COUNT (AUTO) 10.5 K/uL (4.3-11.0)
--- NOTE | 2019-11-03 07:21 | NUR ---
RN CLOSING NOTE: PATIENT IN BED, ASLEEP, BUT EASILY AROUSABLE. IN STABLE CONDITION THROUGHOUT THE SHIFT. PER CHARGE NURSE, (R) AC IV LINE OK TO USE. PATIENT IS HARD STICK. ENDORSED TO AM SHIFT NURSE FOR CONTINUITY OF CARE. Addendum: 11/03/19 at 0725 by BOY BROOKS RN WRONG DOCUMENTATION
[2019-11-03 07:32] LABS: ALBUMIN 2.1 g/dL (3.4-5.0); BILIRUBIN,TOTAL 0.8 mg/dL (0.2-1.0); CALCIUM, SERUM 8.7 mg/dL (8.5-10.1); CREATININE 0.9 mg/dL (0.6-1.3); MAGNESIUM 2.1 mg/dL (1.8-2.4); PHOSPHORUS 3.5 mg/dL (2.5-4.9); POTASSIUM 4.7 mmol/L (3.5-5.1); TOTAL PROTEIN, SERUM 5.8 g/dL (6.4-8.2)
[2019-11-03 08:00] VITALS: BP 140/68
[2019-11-03 08:08] LABS: THYROID STIMULATING HORMONE 2.205 uIU/mL (0.358-3.74)
--- NOTE | 2019-11-03 09:00 | NUR ---
RN OPENING NOTES RECEIVED PT. IN BED. NO ACUTE DISTRESS NOTED. PT. A&OX1, WITH CONFUSION. PT. ON 2L O2 VIA NC, SATURATING WELL AT 99%. PT. ON TELE MONITOR, SR NOTED. PT. IV ACCESS L HAND #22, INTACT, PATENT, FLUSHED WELL. PT. SAFETY MAINTAINED. CALL LIGHT WITHIN REACH. WILL CONTINUE TO MONITOR.
[2019-11-03] MEDS: VANCOMYCIN 1 GM in IV D5W 250 ML IV SCH (11:14)
[2019-11-03 12:00] VITALS: BP 128/76
[2019-11-03 16:00] VITALS: BP_SYST 128; BP_SYST 130; BP_DIAS 82
--- NOTE | 2019-11-03 18:28 | NUR ---
RN CLOSING NOTES PT. IN BED. NO ACUTE DISTRESS NOTED. PT. A&OX1, WITH CONFUSION. PT. ON 2L O2 VIA NC, SATURATING WELL AT 98%. PT. ON TELE MONITOR, SR NOTED. PT. IV ACCESS L HAND, INTACT, PATENT, FLUSHED WELL. PT. SAFETY MAINTAINED. CALL LIGHT WITHIN REACH. WILL ENDORSE PLAN OF CARE TO ONCOMING NURSE
--- NOTE | 2019-11-03 19:32 | NUR ---
RN OPENING NOTES: PATIENT IN BED, AWAKE, AND RESPONSIVE. AAOX1. ON O2 AT 2LPM VIA NC, TOLERATING WELL. NO RESPIRATORY DISTRESS. NO C/O PAIN. PER AM RN, PATIENT DID NOT EAT ANYTHING TODAY. [facility] STILL PENDING. BEAU TREVIÑO MADE AWARE OF PATIENT STATUS AND ORDERED IV HYDRATION D5 NS AT 50 MLS/HR. WILL MONITOR RESPIRATORY STATUS. SAFETY PRECAUTIONS IMPLEMENTED. BED LOCKED, ALARM ON, LOW POSITION. SIDE RAILS X 2 UP. HOB ELEVATED. CALL LIGHT WITHIN REACH. WILL CONT. TO MONITOR.
[2019-11-03] MEDS: IV D5/ 0.9% NACL 1,000 ML IV PRN (19:55)
[2019-11-03 20:00] VITALS: BP 122/67
[2019-11-03] MEDS: ENOXAPARIN SODIUM 40 MG/0.4 ML DISP.SYRIN SQ SCH (20:01)
--- NOTE | 2019-11-03 23:29 | NUR ---
RN NOTE: RECEIVED COVID RESULT FROM LAB: NEGATIVE. CHARGE NURSE AWARE.
[2019-11-04] VITALS: BP 95/54
--- NOTE | 2019-11-04 03:05 | NUR ---
RN NOTE: REPORT GIVEN TO WOLFGANG MAKI FOR CONTINUITY OF CARE.
[2019-11-04] MEDS: CEFEPIME 1 GM in IV D5W 50 ML IV SCH ×2 (03:20→17:33)
[2019-11-04 04:00] VITALS: BP 100/60
[2019-11-04] MEDS: VANCOMYCIN 1 GM in IV D5W 250 ML IV SCH ×2 (05:21→23:47)
--- NOTE | 2019-11-04 06:30 | NUR ---
RN NOTE: PAGED PATIENT'S SON MAUDE TO INFORM ABOUT COVID NEGATIVE RESULT. NO CALL BACK. AWAITING FOR RESPONSE. WOLFGANG MAKI AWARE.
--- NOTE | 2019-11-04 06:31 | NUR ---
RN CLOSING NOTES The patient remains stable. VS within normal limits. No change of condition noted during the last hours of the shift after receiving the client from GLYNN Mario. All safety mechanisms in place at this time. Will endorse the next shift for continuity of care.
--- NOTE | 2019-11-04 07:30 | NUR ---
rn notes received patient in bed, asleep, responsive to tactile stimuli, with mumbling sounds. not on any form of distress. breathing unlabored with oxygen at 2lpm, sating fine. sinus rhythm on the monitor with hr on the 70S. iv site on the right wrist g 22- in place, with ongoing iv at desired rate. hob kept elevated. safety measures observed and maintained. srx2 raised. bed in low and locked position. call light within reach. will continue to monitor patient accordingly
[2019-11-04 07:55] LABS: BASOPHILS % (AUTO) 0.5 % (0.0-2.0); EOSINOPHILS % (AUTO) 3.5 % (0.0-6.0); HEMATOCRIT 35 % (33-45); HEMOGLOBIN 11.6 g/dL (11.5-14.8); LYMPHOCYTES # (AUTO) 1.1 /CMM (0.8-4.8); LYMPHOCYTES % (AUTO) 11.3 % (20.0-44.0); MEAN CORPUSCULAR HGB CONC 33 g/dl (31.0-36.0); MEAN CORPUSCULAR VOLUME 92 fL (82-100); MONOCYTES # (AUTO) 0.9 /CMM (0.1-1.30); MONOCYTES % (AUTO) 9.4 % (2.0-12.0); NEUTROPHILS # (AUTO) 7.3 /CMM (1.8-8.9); NEUTROPHILS % (AUTO) 75.3 % (43.0-81.0); PLATELET COUNT (AUTO) 224 /CMM (150-450); RED BLOOD CELL COUNT(AUTO) 3.83 MIL/uL (4.0-5.2); WHITE BLOOD COUNT (AUTO) 9.6 K/uL (4.3-11.0)
[2019-11-04 08:00] VITALS: BP 124/68
[2019-11-04 08:13] LABS: CALCIUM, SERUM 8.2 mg/dL (8.5-10.1); CREATININE 0.9 mg/dL (0.6-1.3); MAGNESIUM 1.9 mg/dL (1.8-2.4); PHOSPHORUS 2.9 mg/dL (2.5-4.9); POTASSIUM 3.1 mmol/L (3.5-5.1)
[2019-11-04] MEDS: POTASSIUM CL. PREMIX PERIPHER. 50 ML IV SCH ×4 (11:29→16:14)
[2019-11-04 12:00] VITALS: BP 118/72
[2019-11-04] MEDS ORDERED: IV NS 0.9% 250 ML IV PRN (13:30)
[2019-11-04 16:00] VITALS: BP 128/76
--- NOTE | 2019-11-04 19:30 | NUR ---
RN OPENING NOTES Patient is resting in bed, VS WNL. client is on external monitoring, SR, HR 60's. RDZ 18G, running D5 NS @ 50ml/hr. Client shows no s/s/ of distress nor pain, client denies pain. All safety mechanisms in place at this time. Bed locked in the lowest position and call light within reach, Will continue to monitor.
[2019-11-04 20:00] VITALS: BP 108/54
[2019-11-04] MEDS: ENOXAPARIN SODIUM 40 MG/0.4 ML DISP.SYRIN SQ SCH (20:43)
[2019-11-05] VITALS (7 sets, daily range): BP systolic 107–143; BP diastolic 54–81
[2019-11-05] MEDS: IV D5/ 0.9% NACL 1,000 ML IV PRN (01:36)
[2019-11-05] MEDS: CEFEPIME 1 GM in IV D5W 50 ML IV SCH ×2 (04:18→17:04)
--- NOTE | 2019-11-05 05:58 | NUR ---
RN CLOSING NOTE The client remains stable, VS WNL. No s/s of respiratory distress. The client denies pain, no s/s of pain. The client is on external Telemonitor, NSR, HR 60's. The client continue to receive D5 NS through LUM 18G. The client has had no change of condition. All needs rendered at this time. Will endorse the incoming shift for the continuity of carer.
[2019-11-05 06:30] LABS: BASOPHILS % (AUTO) 0.4 % (0.0-2.0); EOSINOPHILS % (AUTO) 3.6 % (0.0-6.0); HEMATOCRIT 36 % (33-45); LYMPHOCYTES # (AUTO) 1.2 /CMM (0.8-4.8); LYMPHOCYTES % (AUTO) 11.8 % (20.0-44.0); MEAN CORPUSCULAR HGB CONC 33 g/dl (31.0-36.0); MEAN CORPUSCULAR VOLUME 93 fL (82-100); MONOCYTES # (AUTO) 0.9 /CMM (0.1-1.30); NEUTROPHILS # (AUTO) 7.5 /CMM (1.8-8.9); NEUTROPHILS % (AUTO) 75.2 % (43.0-81.0); PLATELET COUNT (AUTO) 212 /CMM (150-450); RED BLOOD CELL COUNT(AUTO) 3.92 MIL/uL (4.0-5.2)
[2019-11-05 06:50] LABS: CALCIUM, SERUM 8.3 mg/dL (8.5-10.1); CREATININE 0.7 mg/dL (0.6-1.3); POTASSIUM 3.6 mmol/L (3.5-5.1)
--- NOTE | 2019-11-05 07:30 | NUR ---
RN NOTES RECEIVED PATIENT BACK FROM CEMENTER HELPER NURSE. PATIENT WITH NO ACUTE CHANGES. WILL CONTINUE TO MONITOR AND ANTICIPATE NEEDS
[2019-11-05] MEDS: ENSURE ENLIVE CHOC 237 ML CAN PO SCH ×2 (12:09→18:11)
--- NOTE | 2019-11-05 19:55 | NUR ---
RN OPENING NOTE RECEIVED IN BED, APPEARS RESTING COMFORTABLY. PATIENT IS AWAKE BUT CONFUSED. NO SOB NOTED. PATIENT'S BREATHING IS EVEN AND UNLABORED. PATIENT IS ON 2 L OF OXYGEN VIA NC SATURATING AT 97%; TOLERATING WELL. PATIENT ON TELE MONITOR READING SR, HR IS @86. NOTED IV SITE ON LEFT HAND; PATENT AND FLUSHING WELL,NO S/S OF INFECTION OR INFILTRATION. SAFETY MEASURES IMPLEMENTED PER PROTOCOL. PATIENT BED ALARM IS ON. HEAD OF BED ELEVATED. BED IS LOCKED, IN LOWEST POSITION AND SIDE RAILS UPX2. CALL LIGHT WITHIN REACH OF THE PATIENT. WILL CONTINUE TO MONITOR AND REASSESS FOR ANY CHANGES.
[2019-11-05] MEDS: ENOXAPARIN SODIUM 40 MG/0.4 ML DISP.SYRIN SQ SCH (20:42)
[2019-11-06] VITALS (7 sets, daily range): BP systolic 119–161; BP diastolic 60–82
--- NOTE | 2019-11-06 | NUR ---
RN NOTE PATIENT IS VERY CONFUSED, KEEPS TAKING OFF NC, TUBINGS AND LEADS. REPORTED TO DIAMOND FINISHING SUPERVISOR MD. AWAITING MD ORDERS.
--- NOTE | 2019-11-06 00:15 | NUR ---
RN NOTE BP 161/70 AT 0000, BP RECHECKED AT 0015 AND REVEALED 111/76.
--- NOTE | 2019-11-06 00:15 | NUR ---
RN NOTE REASSESSED PATIENT BP 161/70. BP RECHECKED AND REVEALED 144/72
[2019-11-06] MEDS: CEFEPIME 1 GM in IV D5W 50 ML IV SCH ×2 (03:59→16:08)
--- NOTE | 2019-11-06 06:51 | NUR ---
RN CLOSING NOTE PATIENT REMAINS IN ROOM. NO SIGNS OF RESPIRATORY. SAFETY MEASURES IMPLEMENTED, BED IN LOWEST POSITION, LOCKED, SIDE RAILS UP, CALL LIGHT WITHIN REACH. ENDORSED TO INCOMING SHIFT RN FOR CONTINUITY OF CARE.
[2019-11-06 07:03] LABS: BASOPHILS # (AUTO) 0.1 /CMM (0.0-0.2); EOSINOPHILS % (AUTO) 3.7 % (0.0-6.0); HEMATOCRIT 34 % (33-45); HEMOGLOBIN 11.6 g/dL (11.5-14.8); LYMPHOCYTES # (AUTO) 1.3 /CMM (0.8-4.8); LYMPHOCYTES % (AUTO) 14.7 % (20.0-44.0); MEAN CORPUSCULAR HGB CONC 34 g/dl (31.0-36.0); MEAN CORPUSCULAR VOLUME 91 fL (82-100); MONOCYTES # (AUTO) 0.8 /CMM (0.1-1.30); MONOCYTES % (AUTO) 9.7 % (2.0-12.0); NEUTROPHILS # (AUTO) 6.1 /CMM (1.8-8.9); NEUTROPHILS % (AUTO) 70.9 % (43.0-81.0); PLATELET COUNT (AUTO) 232 /CMM (150-450); RED BLOOD CELL COUNT(AUTO) 3.77 MIL/uL (4.0-5.2); WHITE BLOOD COUNT (AUTO) 8.7 K/uL (4.3-11.0)
[2019-11-06 08:09] LABS: ALBUMIN 1.8 g/dL (3.4-5.0); BILIRUBIN,TOTAL 0.7 mg/dL (0.2-1.0); CREATININE 0.8 mg/dL (0.6-1.3); MAGNESIUM 1.7 mg/dL (1.8-2.4); PHOSPHORUS 2.2 mg/dL (2.5-4.9); TOTAL PROTEIN, SERUM 5.1 g/dL (6.4-8.2)
[2019-11-06 08:18] LABS: POTASSIUM 3.2 mmol/L (3.5-5.1)
[2019-11-06 08:36] LABS: C-REACTIVE PROTEIN 8.1 mg/dL (0.0-0.9)
[2019-11-06] MEDS: ENSURE ENLIVE CHOC 237 ML CAN PO SCH ×3 (09:13→16:14)
--- NOTE | 2019-11-06 10:15 | NUR ---
MS RN NOTES REPORT GIVEN TO ANDREA FOR ZO[facility]. PATIENT MOVED TO 118 BED 1.
--- NOTE | 2019-11-06 10:16 | NUR ---
RN NOTE RECEIVED PT ON BED, ALERT / CONFUSED, ON 2L O2 N/C, RESPIRATION EVEN AND UNLBORED, NO SOB NOTED, ON TELE SR , SAFETY MEASURES IMPLEMENTED PER PROTOCOL. PATIENT BED ALARM IS ON. HEAD OF BED ELEVATED. BED IS LOCKED, IN LOWEST POSITION AND SIDE RAILS UPX3. CALL LIGHT WITHIN REACH OF THE PATIENT. WILL CONTINUE TO MONITOR .
[2019-11-06] MEDS ORDERED: VANCOMYCIN 1 GM in IV D5W 250 ML IV SCH (11:00)
[2019-11-06] MEDS: Magnesium 1GM/D5W 100ML PREMIX 100 ML IV SCH ×2 (11:24→12:37)
[2019-11-06] MEDS: POTASSIUM CHLORIDE 20 MEQ TAB.PRT.SR PO SCH ×2 (11:24→12:37)
[2019-11-06] MEDS ORDERED: K PHOS NEUTRAL 250 MG TABLET PO ONE (11:30)
[2019-11-06] MEDS: IV D5/ 0.9% NACL 1,000 ML IV PRN (16:59)
--- NOTE | 2019-11-06 18:00 | NUR ---
RN NOTES PT STABLE, NO SIGNIFICANT CHANGES NOTED ON THIS SHIFT,WILL ENDOSE TO [employer] NURSE FOR CONTINUITY OF CARE.
[2019-11-06] MEDS: ENOXAPARIN SODIUM 40 MG/0.4 ML DISP.SYRIN SQ SCH (21:30)
[2019-11-07] MEDS: CEFEPIME 1 GM in IV D5W 50 ML IV SCH ×2 (03:20→15:09)
[2019-11-07 04:00] VITALS: BP 114/72
[2019-11-07 07:03] LABS: CALCIUM, SERUM 8.5 mg/dL (8.5-10.1); CREATININE 0.8 mg/dL (0.6-1.3); MAGNESIUM 2.1 mg/dL (1.8-2.4); PHOSPHORUS 2.7 mg/dL (2.5-4.9); POTASSIUM 3.6 mmol/L (3.5-5.1)
--- NOTE | 2019-11-07 07:20 | NUR ---
RN OPENING NOTES RECEIVED PATIENT IN BED RESTING. A/OX1, CONFUSED. PER REPORT, ON CAROL SOFT WRIST RESTRAINTS DUE TO PATIENT PULLING OFF IV LINES/TUBES. NOT IN ANY FORM OF DISTRESS. NO SOB, ON 2LPM OXYGEN VIA NC, TOLERATING WELL. IV ACCESS INTACT AND PATENT. KEPT PATENT SAFE AND COMFORTABLE. BED IN LOW/LOCKED POSITION, SIDERAILS UP, CALL LIGHT IN REACH. WILL MONIOTR ACCORDINGLY.
[2019-11-07 08:00] VITALS: BP 135/65
[2019-11-07] MEDS: ENSURE ENLIVE CHOC 237 ML CAN PO SCH ×2 (08:28→12:33)
--- NOTE | 2019-11-07 10:24 | NUR ---
WOUND CARE CONSULT: PT PRESENTS WITH BLANCHABLE REDNESS TO SACRUM AND HEELS, PRESENT ON ADMISSION. PT NOTED TO BE INCONTINENT. RECOMMENDATIONS MADE FOR SKIN PROTECTION. DISCUSSED WITH NURSING STAFF. WILL SEE PRN. HEDRICK IN AGREEMENT WITH PLAN OF CARE. [facility] LOW AIRLOSS BED IN PLACE. Addendum: 11/07/19 at 1025 by SAMI PAIZ WNDNU Amended: Links added.
[2019-11-07] MEDS ORDERED: CEFE1FRO IV (12:10)
[2019-11-07] MEDS ORDERED: ENOX40DI SQ (12:10)
[2019-11-07] MEDS ORDERED: MAGN400O6 PO (12:10)
[2019-11-07] MEDS ORDERED: ACET325T53 PO (12:10)
[2019-11-07 16:00] VITALS: BP 132/84
--- NOTE | 2019-11-07 16:15 | NUR ---
discharged patient in stable condition picked up by ambulance going to [facility] cntr. Report given to GLYNN Cooper. Dc instructions given, verbalized understanding. Paperwork and all belongings returned and handed to etl programmer. Midline in place with c/d/i dressing, for cont iv ABx at the [facility]. Name band removed. Skin photos taken and placed in chart.
== END 2019-11-07 16:28 | DRG 871 ==
LOC: ER 14:50 → MEDSG1 19:05 → TELE1 19:20 → MEDSG1 11-06 07:30
PROVIDERS: ADMIT Hospitalist; ATTEND Nurse Practitioner Acute Care
PROC: 05HF33Z Insertion of Infusion Device into Left Cephalic Vein, Percutaneous Approach (ICD-10-PCS; principal; 2019-11-04)
DX: A41.9 Sepsis, unspecified organism (principal); E43 Unspecified severe protein-calorie malnutrition; J15.9 Unspecified bacterial pneumonia; N39.0 Urinary tract infection, site not specified; Z68.1 Body mass index [BMI] 19.9 or less, adult; E87.2 Acidosis; J98.11 Atelectasis; F03.90 Unspecified dementia, unspecified severity, without behavioral disturbance, psychotic disturbance, mood disturbance, and anxiety; I50.9 Heart failure, unspecified; R65.20 Severe sepsis without septic shock; Z66 Do not resuscitate; R62.7 Adult failure to thrive; I11.0 Hypertensive heart disease with heart failure; E03.9 Hypothyroidism, unspecified; E87.6 Hypokalemia; E78.5 Hyperlipidemia, unspecified; Z87.440 Personal history of urinary (tract) infections; I25.10 Atherosclerotic heart disease of native coronary artery without angina pectoris; D64.9 Anemia, unspecified; I70.0 Atherosclerosis of aorta; Z79.811 Long term (current) use of aromatase inhibitors; Z79.02 Long term (current) use of antithrombotics/antiplatelets; K44.9 Diaphragmatic hernia without obstruction or gangrene
CPT/HCPCS: 36415; 70450-TC; 71045-TC; 80048-TC; 80053-TC; 80061-TC; 80076-TC; 80202-TC; 80305; 81000-TC; 82550-TC; 82553; 82728-TC; 82962-TC; 83605-TC; 83615-TC; 83735-TC; 84100-TC; 84439-TC; 84443-TC; 84484-TC; 85025-TC; 85378-TC; 85385-TC; 85730-TC; 86140-TC; 87040-TC; 87081-TC; 87086-TC; 92611-TC; G0378; J0692; J1650; J3370; J3475; J3480; J3490; J7030; J7040; J7042; J7050; J7060; J7070; U0003-CS